=== PATIENT | male | born 1945 | race Caucasian/White ===

== ENCOUNTER 2018-08-28 10:27 | Observation (INO) | payer MEDICARE ==
[~2018-08-28] VITALS: Ht 182.9 cm; Wt 94.9 kg
[2018-08-28 11:05] VITALS: BP 159/80
[2018-08-28] MEDS ORDERED: GLIP10TA13 PO (11:20)
[2018-08-28] MEDS ORDERED: OMEG-133 PO (11:20)
[2018-08-28] MEDS ORDERED: LISI-170 PO (11:20)
[2018-08-28] MEDS ORDERED: ASPI-496 PO (11:20)
[2018-08-28] MEDS ORDERED: CLOP75TA PO (11:20)
[2018-08-28] MEDS ORDERED: AMLO-150 PO (11:20)
[2018-08-28] MEDS ORDERED: OMEP20TA62 PO (11:20)
[2018-08-28] MEDS ORDERED: PRAV80TA2 PO (11:20)
[2018-08-28] MEDS ORDERED: MULT-6 PO (11:20)
[2018-08-28] MEDS ORDERED: TAMS0.4C2 PO (11:20)
[2018-08-28] MEDS ORDERED: METF500T17 PO (11:20)
[2018-08-28] MEDS ORDERED: FENTANYL PF 100 MCG/2ML ONE (12:43)
[2018-08-28] MEDS ORDERED: TICAGRELOR 90 MG TABLET ONE (12:43)
[2018-08-28] MEDS ORDERED: VERAPAMIL 2.5 MG/ML, 2ML ONE (12:44)
[2018-08-28] MEDS ORDERED: HEPARIN 1,000 UNITS/ML, 10ML ONE (12:44)
[2018-08-28] MEDS ORDERED: LIDOCAINE 2%, 20ML ONE (12:44)
[2018-08-28] MEDS ORDERED: MIDAZOLAM 1 MG/ML, 2ML ONE (12:44)
[2018-08-28] MEDS ORDERED: NITROGLYCERIN 5 MG/ML, 10ML ONE (12:44)
[2018-08-28] MEDS ORDERED: BIVALIRUDIN 250 MG ONE (12:44)
[2018-08-28] MEDS: SODIUM CHLORIDE 0.9% 1,000 ML IV SCH ×2 (13:53→21:53)
[2018-08-28] MEDS: metFORMIN 500 MG TABLET PO SCH ×2 (14:52→18:48)
[2018-08-28 15:06] VITALS: BP 144/78
[2018-08-28 19:30] VITALS: BP 137/73
[2018-08-28] MEDS ORDERED: PRAVASTATIN 40 MG TABLET PO SCH (21:00)
[2018-08-28] MEDS ORDERED: INSULIN LISPRO 100 UNITS/ML, PEN SQ-INSULIN SCH (23:00)
[2018-08-28] MEDS: INSULIN LISPRO 100 UNITS/ML, PEN SQ-INSULIN SCH (23:42)
[2018-08-29 01:00] VITALS: BP 154/73
[2018-08-29] MEDS ORDERED: ACETAMINOPHEN 325 MG TABLET PO PRN (01:00)
[2018-08-29] MEDS ORDERED: ONDANSETRON ODT 4 MG PO PRN (01:00)
[2018-08-29] MEDS ORDERED: NITROGLYCERIN 0.4 MG BOTTLE (25 TABS) SL PRN (01:00)
[2018-08-29] MEDS ORDERED: TEMAZEPAM 15 MG CAPSULE PO PRN (01:00)
[2018-08-29] MEDS ORDERED: LIDODERM 5% PATCH TD PRN (01:00)
[2018-08-29] MEDS ORDERED: hydrALAzine 20 MG/ML, 1ML IVPush PRN (01:00)
[2018-08-29] MEDS ORDERED: DOCUSATE 100 MG CAPSULE PO PRN (01:00)
[2018-08-29 05:12] LABS: ANION GAP 10 mmol/L (5-15); CALCIUM 8.7 mg/dL (8.5-10.1); CHLORIDE 107 mmol/L (98-107); CREATININE 0.88 mg/dL (0.7-1.3)
[2018-08-29] MEDS: SODIUM CHLORIDE 0.9% 1,000 ML IV SCH (05:53)
[2018-08-29] MEDS: INSULIN LISPRO 100 UNITS/ML, PEN SQ-INSULIN SCH (08:06)
[2018-08-29] MEDS: metFORMIN 500 MG TABLET PO SCH (08:07)
[2018-08-29 08:20] VITALS: BP 156/87
[2018-08-29] MEDS ORDERED: TAMSULOSIN 0.4 MG CAP.ER.24H PO SCH (09:00)
[2018-08-29] MEDS ORDERED: CLOPIDOGREL 75 MG TABLET PO SCH (09:00)
[2018-08-29] MEDS ORDERED: AMLODIPINE 10 MG TAB PO SCH (09:00)
[2018-08-29] MEDS ORDERED: LISINOPRIL 20 MG TABLET PO SCH (09:00)
[2018-08-29] MEDS ORDERED: ASPIRIN 81 MG TABLET CHEW PO SCH (09:00)
== END 2018-08-29 10:05 | disposition home or self-care (01) ==
LOC: CACL 10:27 → ORIP 13:57 → 5SO 15:43 → DCLOUNGE 08-29 09:59
PROVIDERS: ADMIT Internal Medicine Cardiovascular Disease; ATTEND Internal Medicine Cardiovascular Disease
DX: I25.10 Atherosclerotic heart disease of native coronary artery without angina pectoris (principal)
CPT/HCPCS: 36415; 80048; 82962; 85014; 85018; 92920; 93458; 96372; 99156; 99157; C1725; C1769; C1887; C1894; G0378; J0583; J1644; J1815; J2250; J3010; J3490; Q9967; 92928